=== PATIENT | female | born 1960 | race Caucasian/White ===

== ENCOUNTER 2022-01-11 15:00 | Emergency (ER) | payer OTHER ==
[~2022-01-11] VITALS: Ht 157.5 cm; Wt 59.0 kg
[2022-01-11] MEDS ORDERED: IV NORMAL SALINE 500 ML BAG IV ONE (15:15)
[2022-01-11] MEDS ORDERED: MECLIZINE HCL 25 MG TABLET PO ONE (15:15)
[2022-01-11] MEDS ORDERED: ONDANSETRON 4 MG/2 ML VIAL IV ONE (15:15)
[2022-01-11 15:24] LABS: HEMATOCRIT 38.5 % (31.2-41.9); MEAN CORPUSCULAR HEMOGLOBIN 33.2 uug (24.7-32.8); MEAN CORPUSCULAR VOLUME 94.5 fL (75.5-95.3); PLATELET COUNT (AUTO) 330 K/uL (179-408)
[2022-01-11 15:38] LABS: CARBON DIOXIDE 25 mmol/L (21-32); CHLORIDE 99 mmol/L (98-107); CREATININE 0.9 mg/dL (0.6-1.3); GLUCOSE 196 mg/dL (74-106); POTASSIUM 3.7 mmol/L (3.5-5.1); UREA NITROGEN, BLOOD 14 mg/dL (7-18)
[2022-01-11 15:42] LABS: BILIRUBIN,DIRECT 0.2 mg/dL (0.0-0.2); BILIRUBIN,TOTAL 0.5 mg/dL (0.2-1.0); MAGNESIUM 1.7 mg/dL (1.8-2.4)
[2022-01-11] MEDS ORDERED: HYDR-3972 MT (15:54)
[2022-01-11] MEDS ORDERED: OXCA300T15 MT (15:54)
[2022-01-11] MEDS ORDERED: ATOR40TA (15:54)
[2022-01-11] MEDS ORDERED: MAGNESIUM SULFATE 2 GM in IV DEXTROSE 5% 100 ML IV ONE (16:00)
[2022-01-11] MEDS ORDERED: ONDANSETRON 4 MG/2 ML VIAL ONE (16:10)
[2022-01-11] MEDS ORDERED: MECLIZINE HCL 25 MG TABLET ONE (16:10)
--- NOTE | 2022-01-11 17:27 | NUR ---
Pt left AMA, signed form. Pt and aware of risk, up to and including .
--- NOTE | 2022-01-11 17:32 | NUR ---
Pt stated, before leaving, nausea had resolved and dizzines was almost gone, unless moving quickly. Wheeled pt outside and assisted to car passenger seat.
== END 2022-01-11 17:42 | disposition left against medical advice (07) ==
LOC: ER 15:00
DX: R55 Syncope and collapse (principal); G40.A09 Absence epileptic syndrome, not intractable, without status epilepticus; E83.42 Hypomagnesemia; Z53.29 Procedure and treatment not carried out because of patient's decision for other reasons; G93.89 Other specified disorders of brain; E11.65 Type 2 diabetes mellitus with hyperglycemia; E78.5 Hyperlipidemia, unspecified; Z79.899 Other long term (current) drug therapy
CPT/HCPCS: 99285; 96374; 70450; 71045; 80076; 80048; 82550; 83735; 85025; 84484; 36415; 93005; J2405; J7040; A4663; J3475; J8597